=== PATIENT | female | born 1960 | race Caucasian/White ===

== ENCOUNTER 2017-10-03 14:20 | Outpatient (CLI) | payer BC ==
--- NOTE | 2017-10-03 16:53 | MRI ---
LUMBAR SPINE MRI WITH IV CONTRAST 10/03/17 HISTORY: 57-year-old female with lumbar radiculopathy and chronic low back pain, right leg pain for three to f our months with worsening. Multiplanar and multisequence MRI examination of the lumbar spine is performed. Generalized disc desiccation changes and ligament and facet hypertrophic changes. The conus medullari s region is unremarkable terminating at L1. The L1-L2 disc is unremarkable. At L2-L3, there is some desiccation change without central canal or foraminal stenosis. At L3-L4, there is some disc bulging, somewhat more prominent in the left lateral aspect with slight left foraminal narrowing but no central canal or lateral recess stenosis. At L4-L5, mild disc bulging, somewhat more prominent on the left lateral aspect with mild left forami nal stenosis but no significant central canal stenosis. At L5-S1, No central canal or foraminal stenosis. IMPRESSION: Multilevel mild disc bulging changes with some multilevel mild left foraminal stenosis without signif icant central canal or lateral recess stenosis. POS: TANYA
== END 2017-10-03 14:21 | disposition home or self-care (01) ==
LOC: SCSMRI 14:20
PROVIDERS: ATTEND Surgery
DX: M54.16 Radiculopathy, lumbar region (principal)
CPT/HCPCS: 72148

== ENCOUNTER 2018-01-10 21:27 | Observation (INO) | payer BC ==
[2018-01-10] MEDS ORDERED: Ketorolac Tromethamine 30 MG/ML VIAL ONE (22:08)
[2018-01-10] MEDS ORDERED: diphenhydrAMINE 50 MG/ML VIAL ONE (22:08)
[2018-01-10] MEDS ORDERED: Metoclopramide HCl 10 MG/2 ML VIAL ONE (22:08)
[2018-01-10] MEDS ORDERED: Morphine 4 MG/ML VIAL SLOW IVP PRN (22:56)
[2018-01-10] MEDS ORDERED: Metoclopramide HCl 10 MG/2 ML VIAL IVP PRN (22:57)
--- NOTE | 2018-01-10 23:40 | HP ---
DATE OF ADMISSION: 01/10/2018 CHIEF COMPLAINT: Slurred speech. HISTORY OF PRESENT ILLNESS: This is a 57-year-old white female with no known past medical history, b ut has a recent 3-week history of right hip replacement in [place]. Patient was on anticoagulatio n for the past few weeks and she completed her course yesterday at around 1900. She complained of so me dizziness and some slurred speech, so she called her who said the patient was completely c onfused and had a slurred speech and he was unable to comprehend so he immediately came [place] and took her to [facility]. At that point, they did a CT of the head as the patient was able to see some spots in her eyes. They decided to bring the patient to [facility] for further evaluati on. When patient presented here, she started having some severe headaches, [facility] had a similar episode four weeks ago, but this time the slurred speech was very remark able and as she had previous history of TIAs, wanted this to be ruled out. Patient presented to the [facility] more than 3 hours after the onset of symptoms, so as a CT head was negative and her sym ptoms have returned back to normal. There was no TPA was offered. Patient denies having any chest pain, no nausea, no vomiting, no diarrhea, no constipation, or headac he. She rates as 6/10 intensity and she also complains of right hip pain, which is 06/10 intensity a nd she is on [place] for that. PAST MEDICAL HISTORY: None. PAST SURGICAL HISTORY: History of two C-sections in the past. SOCIAL HISTORY: Patient is not a nonsmoker. No history of alcohol, no history of illicit drug use. FAMILY HISTORY: No significant family history of coronary artery disease or no premature deaths in t he family. HOME MEDICATIONS: Patient is on [place] for pain. ALLERGIES: No known drug allergies. REVIEW OF SYSTEMS: All 12 systems are reviewed with the patient thoroughly and found to be negative at this time. Systems reviewed, HEENT, CVS, DRILLING ASSISTANT, respiratory, GI. Constitutional: Weight loss or g ain, sense of well-being, ability to conduct usual activities, exercise tolerance. Skin/Breast: Steven h, itching, changes in hair growth or loss, nail changes, breast lumps, tenderness, swelling, nipple discharge. Eyes: Vision, double vision, tearing, blind spots, pain. ENT/Mouth: Headaches (locatio n, time of onset, duration, precipitating factors), vertigo, lightheadedness, injury. Vision, double vision, tearing, blind spots, pain, nose bleeding, colds, obstruction, discharge, dental difficulties , gingival bleeding, dentures, neck stiffness, pain, tenderness, masses in thyroid or other areas. C ardiovascular: Precordial pain, substernal distress, palpitations, syncope, dyspnea on exertion, ort hopnea, nocturnal paroxysmal dyspnea, edema, cyanosis, hypertension, heart murmurs, varicosities, phl ebitis, claudication. Respiratory: Pain, shortness of breath, wheezing, stridor, cough, hemoptysis, fever or night sweats. Gastrointestinal: Poor appetite, dysphagia, indigestion, abdominal pain, he artburn, eructation, nausea, vomiting, hematemesis, jaundice, constipation, or diarrhea, abnormal sto ols (lalito-colored, tarry, bloody, greasy, foul smelling), flatulence, hemorrhoids, recent changes in bowel habits. Genitourinary: Urgency, frequency, dysuria, nocturia, hematuria, polyuria, oliguria, unusual (or change in) color of urine, stones, hesitancy, change in size of stream, dribbling, acute retention or incontinence, libido, potency. Musculoskeletal: Pain, swelling, redness or heat of mus cles or joints, limitation, of motion, muscular weakness, atrophy, cramps. Neurologic/Psychiatric: Convulsions, paralyzes, tremor, incoordination, paresthesias, difficulties with memory of speech, sen casper or motor disturbances, or muscular coordination (ataxia, tremor), emotional problems, anxiety, d epression, previous psychiatric care, unusual perceptions, hallucinations. Allergy/Immunologic: Ski n rash, anemia, bleeding tendency, polydipsia, polyuria, intolerance to heat or cold. PHYSICAL EXAMINATION: VITAL SIGNS: Blood pressures were 138/88, respiratory is 18, saturation is 98%. GENERAL: The patient is moderately built, moderately nourished. She does not appear to be in acute distress. CARDIOVASCULAR: S1, S2 normal. No murmurs, rubs, or gallops. LUNGS: Bilateral air entry was equal. No wheezing, no crackles. ABDOMEN: Soft, nontender. No guarding, no rebound tenderness. Bowel sounds normal. MUSCULOSKELETAL: No calf tenderness. No pedal edema. No joint tenderness, no joint swelling. SKIN: No cyanosis, no erythema, no rash, no pallor. DRILLING ASSISTANT: Cranial nerve examination II-XII intact. No focal deficits were noted. LABORATORY DATA: WBC 7.1, hemoglobin is 13.3, hematocrit is 41.1, platelets is 481. Sodium is 138, potassium 4.2, chloride is 99, bicarbonate is 22, BUN is 12, creatinine is 0.79. ASSESSMENT: 1. Transient ischemic attack. 2. Atypical migraine with aura. 3. Recent right total hip replacement. 4. Moderate dehydration. PLAN: 1. Plan is to closely monitor this patient with neuro checks. We will start the patient on aspirin as a CT head was negative for any intracranial hemorrhage. We planned to do the MRI of the brain in the morning and we will do bilateral carotid ultrasound and 2D echo. If patient had evidence of stro ke, plan to consult Neurology in the morning. Patient will be started on statin, we will check lipid profile in the morning. 2. Patient has migraine with aura. We will continue with [place], which helped with the pain and we w ill treat with Reglan for any worsening nausea. We will avoid any NSAIDs at this time until stroke h as been ruled out. 3. Patient has severe dehydration, we will start the patient on normal saline at 100 mL hour. We wi ll closely monitor for any volume overload. Patient has right hip arthroplasty. Orthopedics is not from here. She had the surgery in [place] per her insurance rules. She follows up with Dr. Amee cook for her right total hip replacement. We will do PT and OT evaluation and speech evaluation before discharge. 4. Deep venous thrombosis prophylaxis. Lovenox 40 mg subcutaneous daily. I spent 75 minutes of this patient.
[2018-01-10 23:48] VITALS: BMI 30.3
[2018-01-11] MEDS ORDERED: Ondansetron HCl/PF 4 MG/2 ML Vial IVP PRN (00:05)
[2018-01-11] MEDS ORDERED: hydrALAZINE 20 MG/ML VIAL SLOW IVP PRN (00:05)
[2018-01-11] MEDS ORDERED: Acetaminophen 325 MG TAB PO PRN (00:05)
[2018-01-11] MEDS: Sodium Chloride 0.9% 1,000 ML IV SCH ×2 (00:42→14:53)
[2018-01-11] MEDS: HYDROcodone/Acetaminophen 5/325 mg Tablet PO PRN ×2 (00:42→10:00)
[2018-01-11 05:06] LABS: #Basophils 0.1 thou/uL (0.0-0.2); #Eosinphils 0.3 thou/uL (0.0-0.7); #Lymphocytes 1.5 thou/uL (1.20-3.40); #Monocytes 0.6 thou/uL (0.11-0.59); #Neutrophils 4.4 thou/uL (1.40-6.50); %Basophils 0.9 % (0.0-1.0); %Eosinophils 4.1 % (0.0-10.0); %Lymphocytes 21.7 % (21.0-51.0); %Monocytes 9.1 % (0.0-10.0); %Neutrophils 64.3 % (42.0-75.0); Hemoglobin 11.2 g/dL (12.0-16.0); Mean Corpuscular HGB CONC 33.9 g/dL (32.0-36.0); Mean Corpuscular Hemoglobin 31.7 pg (27.0-31.0); Mean Corpuscular Volume 93.4 fl (81.0-99.0); Mean Platelet Volume 6.7 fL (7.4-10.4); Platelet Count 442 thou/uL (130-400); RBC Distribution Width 11.8 % (11.5-14.5); Red Blood Cell (RBC) Count 3.55 mill/uL (4.20-5.40); White Blood Cell (WBC) Count 6.9 thou/uL (4.8-10.8)
[2018-01-11 05:33] LABS: Anion Gap 14 mmol/L (10-20); BUN (Urea Nitrogen) 9 mg/dL (9.8-20.1); Calc. Creatinine Clearance 102 mL/min (70-130); Calcium 8.8 mg/dL (7.8-10.44); Carbon Dioxide 22 mmol/L (22-29); Cardiac Risk 4.3 (Less than 4.5); Chloride 106 mmol/L (98-107); Cholesterol 191 mg/dl (< 200 Desired); Estimated GFR-MDRD Greater than 90; Glucose 88 mg/dL (70-105); HDL Cholesterol 44 mg/dL (>60 Neg Risk); LDL Cholesterol, Calculated 130 mg/dL; Potassium 3.6 mmol/L (3.5-5.1); Sodium 138 mmol/L (136-145); Triglycerides 85 mg/dL (Less than 150)
[2018-01-11] MEDS ORDERED: FLU VACC QS2017-18 36 mo. & older 0.5 ML SYRINGE IM ONE (09:00)
[2018-01-11] MEDS: Aspirin 81 mg Enteric Coated Tablet PO SCH (09:54)
[2018-01-11] MEDS: Famotidine 20 MG TAB PO SCH ×2 (09:54→21:06)
[2018-01-11] MEDS: Enoxaparin Sodium 40 MG/0.4 ML SYRINGE SC SCH (09:55)
--- NOTE | 2018-01-11 13:26 | MRI ---
NONCONTRAST EHNHANCED MRI IMAGES OF BRAIN: HISTORY: A 67-year-old female with a history of slurred speech. History of hip surgery 3 weeks ago. FINDINGS: Multiplanar, multisequence noncontrast enhanced MRI images of the brain obtained. MRI images of the brain demonstrate no definite evidence of intracranial masses, hemorrhages, strokes , or contusions. The ventricles are of normal size. Deep white matter ischemic changes are seen. N o evidence of areas of diffusion restriction seen. IMPRESSION: Unremarkable noncontrast-enhanced MRI images brain. POS: TANYA
--- NOTE | 2018-01-11 15:27 | CON ---
DATE OF CONSULTATION: 01/11/2018 CHIEF COMPLAINT: Dizziness. HISTORY OF PRESENT ILLNESS: The patient reports she was in her usual state of health. She had right hip replacement surgery about 3 weeks ago. She was on Lovenox injections for 10 days and then was t old to take a small dose of aspirin daily. She completed her Lovenox course yesterday at around 7:00 and she had difficulty with her speech. So, she texted her who stated to her that it made n o sense and she had difficulty with her speech and all was confused a bit, difficulty with expressing her words and he had come home from his office and she also had some dizziness. The entire episode lasted approximately an hour. She went to the local hospital where she had a CT of the head and she was sent here for further level of care. The patient has had some headaches on and off. Overall, deb dutta has not had a prior episode of TIA. She is usually healthy. PAST MEDICAL HISTORY: Arthritis. PAST SURGICAL HISTORY: History of C-sections and right hip replacement 3 weeks ago. SOCIAL HISTORY: She does not smoke. 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 She lives with her . HOME MEDICATION: She was on Lovenox until recently and also takes [place] for pain. ALLERGIES: No known drug allergies. REVIEW OF SYSTEMS: PULMONARY: Normal. CARDIAC: Normal. GASTROINTESTINAL: Normal. GENITOURINARY : Normal. RHEUMATOLOGIC: Positive for hip replacement and hip problems. DERMATOLOGIC: Normal. E NDOCRINE: Normal. NEUROLOGIC: Positive for word finding difficulties and dizziness. No weakness. Negative for any sensory symptoms. IMAGING DATA AND LABORATORY DATA: MRI report is pending. White count 6.9, hemoglobin 11.2, hematocr it 33.1, platelets 442, sodium 138, potassium 3.6, chloride 106, bicarbonate 22, BUN 9, creatinine 0. 64. PHYSICAL EXAMINATION: VITAL SIGNS: Blood pressure 134/70, temperature 98.5, pulse 113, respiratory rate 18. GENERAL APPEARANCE: Well-built and well-nourished lady who is comfortable in bed. CHEST: Clear vesicular breathing. CARDIOVASCULAR: S1, S2 heard, no murmurs. Carotids are clear. ABDOMEN: Soft, nontender, no organomegaly noted. MOTOR: Bulk normal, tone normal, strength 5/5 in upper and lower extremities in iliopsoas, hamstring s, quadriceps, ankle dorsiflexion, plantar flexion, deltoid, biceps, triceps, wrist extension/flexion , finger extension and flexion bilaterally. SENSORY: Normal to touch, pinprick, proprioception, vibration and temperature. Cerebellar: Normal [id number]-il-[id number] and qlbh-ni-[id number] and deep tendon reflexes are 2+ throughout. IMPRESSION: Patient is a 57-year-old lady with transient episode of difficulty with word finding jay ng with dizziness. No weakness or numbness was reported. She was brought to the ER and has been wor ked up so far with CT head at an outside facility and her current MRI report is pending. Her neurolo gical examination is normal. Diagnosis is most consistent with transient ischemic attack in the sett ing of recent hip surgery. RECOMMENDATIONS: Please complete her workup including carotid Doppler and MRI as well as echocardiog jh and consider venous Dopplers for her legs, as well to make sure there is no other hypercoagulable issue and I will request Dr. Chappell, neurologist, to follow up on the patient tomorrow.
[2018-01-11] MEDS ORDERED: Atorvastatin Calcium 40 MG TAB PO SCH (21:00)
--- NOTE | 2018-01-11 21:46 | PDOC.PN ---
- Subjective Encounter Start Date: 01/11/18 Encounter Start Time: 15:00 Patient seen and examined. No new complaints. No overnight events. No new focal deficits. - Objective Resuscitation Status: Resuscitation Status FULL:Full Resuscitation MAR Reviewed: Yes Vital Signs & Weight: Vital Signs (12 hours) Temp Pulse Pulse Pulse Resp BP BP 01/11/18 15:23 98.6 F 102 H 18 01/11/18 15:09 105 H 114 H 115/75 120/68 01/11/18 11:20 98.5 F 113 H 18 01/11/18 09:50 98.5 F 103 H 18 BP Pulse Ox 01/11/18 15:23 115/75 97 01/11/18 15:09 01/11/18 11:20 134/70 96 01/11/18 09:50 126/72 95 Weight Weight 150 lb 1.6 oz I&O: 01/10/18 01/11/18 01/12/18 06:59 06:59 06:59 Intake Total 1130 970 Balance 1130 970 Result Diagrams: 01/11/18 04:28 01/11/18 04:28 EKG Reviewed by me: Yes (Tele SR) Phys Exam - Physical Examination Constitutional: NAD Respiratory: no wheezing, no rhonchi Cardiovascular: RRR, no rub Gastrointestinal: soft, non-tender, positive bowel sounds Musculoskeletal: no edema Dx/Plan - Plan DVT proph w/SCDs IMPRESSION: 1. TIA 2. Recent hip surgery 3. Obesity BMI 30.3 4. Abn Alk Phosphatase 5. Chronic Anemia / HLD PLAN: * Neuro input appreciated * Await Echo * Carotid and BLE Doppler per Neuro recomm. * Cont ASA * DVT prophylaxis * Statins - will reduce dose * AM labs Review of Systems - Review of Systems Respiratory: negative: Cough, Dry, Shortness of Breath, Hemoptysis, SOB with Excertion, Pleuritic Pain, Sputum, Wheezing Cardiovascular: negative: chest pain, palpitations, orthopnea, paroxysmal nocturnal dyspnea, edema, light headedness Gastrointestinal: negative: Nausea, Vomiting, Abdominal Pain, Diarrhea, Constipation, Melena, Hematochezia - Medications/Allergies Allergies/Adverse Reactions: Allergies Allergy/AdvReac Type Severity Reaction Status Date / Time No Known Drug Allergies Allergy Verified 01/11/18 00:37 Medications: Current Medications Acetaminophen (Tylenol) 650 mg PO Q4H PRN PRN Reason: Headache/Fever or Pain Hydrocodone Bitart/Acetaminophen ([place] 5/325) 1 tab PO Q4H PRN PRN Reason: Moderate Pain (4-6) Last Admin: 01/11/18 10:00 Dose: 1 tab Aspirin (Ecotrin) 81 mg PO DAILY [facility] Last Admin: 01/11/18 09:54 Dose: 81 mg Atorvastatin Calcium (Lipitor) 40 mg PO HS [facility] Last Admin: 01/11/18 21:06 Dose: 40 mg Enoxaparin Sodium (Lovenox) 40 mg SC 0900 [facility] Last Admin: 01/11/18 09:55 Dose: 40 mg Famotidine (Pepcid) 20 mg PO BID [facility] Last Admin: 01/11/18 21:06 Dose: 20 mg Hydralazine HCl (Apresoline) 10 mg SLOW IVP Q4H PRN PRN Reason: BP > 220/110 Metoclopramide HCl (Reglan) 10 mg IVP Q8H PRN PRN Reason: nausea Morphine Sulfate (Morphine) 2 mg SLOW IVP Q4H PRN PRN Reason: Breakthrough Pain Ondansetron HCl (Zofran) 4 mg IVP Q6H PRN PRN Reason: Nausea/Vomiting
[2018-01-12 06:01] LABS: ALT (SGPT) 21 U/L (8-55); AST (SGOT) 17 U/L (5-34); Albumin 3.2 g/dL (3.5-5.0); Alkaline Phosphatase 139 U/L (40-150); Anion Gap 13 mmol/L (10-20); BUN (Urea Nitrogen) 6 mg/dL (9.8-20.1); Bilirubin, Total 0.3 mg/dL (0.2-1.2); Calc. Creatinine Clearance 100 mL/min (70-130); Calcium 9.3 mg/dL (7.8-10.44); Carbon Dioxide 23 mmol/L (22-29); Chloride 109 mmol/L (98-107); Estimated GFR-MDRD Greater than 90; Globulin 2.5 g/dL (2.4-3.5); Glucose 97 mg/dL (70-105); Magnesium 1.6 mg/dL (1.6-2.6); Potassium 3.6 mmol/L (3.5-5.1); Protein, Total 5.7 g/dL (6.0-8.3); Sodium 141 mmol/L (136-145)
[2018-01-12 08:09] VITALS: TEMP 97.6
[2018-01-12] MEDS: Famotidine 20 MG TAB PO SCH (08:52)
[2018-01-12] MEDS: Aspirin 81 mg Enteric Coated Tablet PO SCH (08:52)
[2018-01-12] MEDS: Enoxaparin Sodium 40 MG/0.4 ML SYRINGE SC SCH (08:52)
--- NOTE | 2018-01-12 09:44 | ULT ---
BILATERAL LOWER EXTREMITY VENOUS ULTRASOUND: Date: 01/12/18 COMPARISON: None. HISTORY: Right lower extremity edema and pain for weeks. TECHNIQUE: Multiplanar Edmond scale and color Doppler images were obtained in a bilateral lower extremity venous u ltrasound. Spectral analysis of the Doppler waveforms were performed. FINDINGS: Bilateral common femoral veins, profunda femoral veins, superficial femoral veins, and popliteal vein s are normal in appearance without visible thrombus. These vessels demonstrate normal compression, fl ow, and augmentation. The posterior tibial veins and greater saphenous veins are also patent. IMPRESSION: No evidence of deep venous thrombosis. POS: BRIAN
--- NOTE | 2018-01-12 09:46 | ULT ---
CAROTID ULTRASOUND: DATE: 01/12/18 COMPARISON: None. HISTORY: TIA. TECHNIQUE: Multiplanar Edmond scale and color Doppler images were obtained in a carotid ultrasound. Spectral maddi sis of the Doppler waveforms were performed. FINDINGS: No significant plaque is seen in either internal or common carotid artery. The Doppler waveforms are normal bilaterally. Peak systolic velocity in the right ICA is 80 cm/second. Peak systolic velocity in the right CCA is 9 4 cm/second. The right ICA/CCA ratio is 0.9. Peak systolic velocity in the left ICA is 82 cm/second. Peak systolic velocity in the left CCA is 85 cm/second. The left ICA/CCA ratio is 1.0. Both vertebral arteries demonstrate antegrade flow without focal stenosis. IMPRESSION: No evidence of hemodynamically significant stenosis. POS: [facility]ANYA
[2018-01-12 11:44] VITALS: BP 113/57
--- NOTE | 2018-01-12 15:06 | DIS ---
DATE OF ADMISSION: 01/10/2018 DATE OF DISCHARGE: 01/12/2018 CONDITION AT THE TIME OF DISCHARGE: Stable and improved. DISCHARGE DIAGNOSES: 1. Transient ischemic attack. 2. Chronic anemia. 3. Dyslipidemia. 4. Mild obesity with a BMI of 30.3, recent hip surgery status. PRIMARY CARE PHYSICIAN: Dr. Yaniv Brown. DISCHARGE DISPOSITION: Home. DISCHARGE FOLLOWUP: 1. PCP. 2. Neurology, Dr. Amita Chappell. DISCHARGE MEDICATIONS: Aspirin 81 mg daily, atorvastatin 10 mg daily. PROCEDURES DURING THE HOSPITAL: Include, 1. Transthoracic echocardiogram which shows trivial pericardial effusion, otherwise overall normal l eft ventricular function with EF of 60%-65%. 2. MRI of the brain which is negative for any acute infarction or hemorrhage. 3. Carotid Doppler ultrasound bilaterally, which is negative for any hemodynamically significant conner nosis. 4. Lower extremity Doppler ultrasound bilateral. It is negative for any DVT. HISTORY OF PRESENTING ILLNESS: Ms. Duff is a very pleasant 57-year-old female who was brought in by her family for complaints of sudden onset of expressive aphasia and concerns for stroke. The patient is about 3 weeks status post orthopedic surgery of right hip replacement in [place]. She was brought in to [facility] where a CT scan of the head was done which was unremarkable. She w as admitted for further evaluation. Please see admission history and physical for further detail. B y the time, the patient was admitted. Her symptoms have improved. HOSPITAL COURSE: The patient underwent stroke workup and stroke team evaluation. Neurology, Dr. Raman, saw the patient and advised starting her on aspirin and low dose statin given the possibility th at this might be a TIA. Her studies were done and were negative so far. Given the recent surgery hi story, she was started on a daily aspirin with statins and [facility] Prior to discharge, she was seen and examined and is symptom free and eager to go home. PHYSICAL EXAMINATION: VITAL SIGNS: This morning include temperature 97.6, pulse of 94, respirations 20, saturating 95% on room air, blood pressure 113/57. GENERAL: No acute distress, awake, alert, oriented x3. CHEST: Clear to auscultation bilaterally. CARDIAC: Rate and rhythm is regular. NEUROLOGICAL: Nonfocal. Serum chemistry showed triglycerides 85, total cholesterol 191, LDL 130, HDL 44. Her alkaline phosph atase was 198 upon admission, which has improved to normal at 139 prior to discharge. Hemoglobin 11. 2, otherwise unremarkable labs. She was instructed to follow up with her primary care physician in 7-10 days and Neurology in 2-3 wee ks.
[2018-01-12] MEDS ORDERED: Atorvastatin Calcium 10 MG TAB PO SCH (21:00)
== END 2018-01-12 12:23 | disposition home or self-care (01) ==
LOC: ERS 21:27 → 2SE 22:18
PROVIDERS: ADMIT Family Medicine; ATTEND Family Medicine
DX: G45.9 Transient cerebral ischemic attack, unspecified (principal); E78.5 Hyperlipidemia, unspecified; G43.909 Migraine, unspecified, not intractable, without status migrainosus; E86.0 Dehydration; D53.9 Nutritional anemia, unspecified; M19.90 Unspecified osteoarthritis, unspecified site; E66.9 Obesity, unspecified; Z68.30 Body mass index [BMI] 30.0-30.9, adult; Z86.73 Personal history of transient ischemic attack (TIA), and cerebral infarction without residual deficits; Z96.641 Presence of right artificial hip joint; Z98.891 History of uterine scar from previous surgery
CPT/HCPCS: 36415; 70551; 80048; 80053; 80061; 83735; 85025; 90471; 90682; 93306; 93880; 93970; 96361; 96365; 96372; 96375; G0008; G0378; G8978-GP-CI; G8979-GP-CI; G8980-GP-CI; G8987-GO-CJ; G8988-GO-CJ; G8989-GO-CJ; G9162-GN-CH; G9163-GN-CH; G9164-GN-CH; J1200; J1650; J1885; J2765; Q2036

== ENCOUNTER 2018-05-22 16:21 | Emergency (ER) | payer BC ==
[~2018-05-22 16:21] MED LIST: Iopamidol 370 76% 100 ML VIAL ONE
[2018-05-22 16:41] LABS: Bilirubin Negative (Negative); Blood, Urine Negative (Negative); Clarity Clear (Clear); Glucose, Urine (Dipstick) Negative (Negative); Leukocyte Negative (Negative); Nitrite Negative (Negative); Protein, Urine (Dipstick) Negative (Neg-Trace); Urobilinogen 0.2 mg/dL (0.2-1.0); pH, Urine 7.5 (5.0-9.0)
[2018-05-22] MEDS ORDERED: Morphine 4 MG/ML Carpuject ONE (16:57)
[2018-05-22] MEDS ORDERED: Ondansetron HCl/PF 4 MG/2 ML Vial ONE (16:57)
[2018-05-22 17:18] LABS: ALT (SGPT) 26 U/L (8-55); AST (SGOT) 21 U/L (5-34); Albumin 4.3 g/dL (3.5-5.0); Alkaline Phosphatase 101 U/L (40-150); Anion Gap 18 mmol/L (10-20); BUN (Urea Nitrogen) 10 mg/dL (9.8-20.1); Bilirubin, Direct 0.3 mg/dL (0.1-0.3); Bilirubin, Total 0.7 mg/dL (0.2-1.2); Calc. Creatinine Clearance 0 mL/min (70-130); Calcium 10.4 mg/dL (7.8-10.44); Carbon Dioxide 25 mmol/L (22-29); Chloride 102 mmol/L (98-107); Estimated GFR-MDRD 84; Glucose 106 mg/dL (70-105); Lipase 23 U/L (8-78); Potassium 3.8 mmol/L (3.5-5.1); Protein, Total 7.6 g/dL (6.0-8.3); Sodium 141 mmol/L (136-145)
[2018-05-22 17:19] LABS: #Basophils 0.1 thou/uL (0.0-0.2); #Eosinphils 0.2 thou/uL (0.0-0.7); #Lymphocytes 1.4 thou/uL (1.20-3.40); #Monocytes 0.8 thou/uL (0.11-0.59); #Neutrophils 6.8 thou/uL (1.40-6.50); %Basophils 1.1 % (0.0-1.0); %Eosinophils 2.5 % (0.0-10.0); %Lymphocytes 14.9 % (21.0-51.0); %Monocytes 8.3 % (0.0-10.0); %Neutrophils 73.3 % (42.0-75.0); Hemoglobin 14.6 g/dL (12.0-16.0); Mean Corpuscular HGB CONC 35.6 g/dL (32.0-36.0); Mean Corpuscular Hemoglobin 30.3 pg (27.0-31.0); Mean Corpuscular Volume 85.1 fL (78.0-98.0); Mean Platelet Volume 7.3 fL (7.4-10.4); Platelet Count 282 thou/uL (130-400); RBC Distribution Width 11.5 % (11.5-14.5); Red Blood Cell (RBC) Count 4.82 mill/uL (4.20-5.40); White Blood Cell (WBC) Count 9.3 thou/uL (4.8-10.8)
--- NOTE | 2018-05-22 18:57 | CT ---
CT OF ABDOMEN AND PELVIS PERFORMED WITH INTRAVENOUS CONTRAST ENHANCEMENT: 05/22/18 HISTORY: Abdominal pain and vomiting. Symptoms starting 05/06/18 CT. The lung bases are clear of any focal infiltrative process. Some minimal ground glass opacity in the lung betancourt similar to the prior exam. The liver, spleen, pancreas, and gallbladder regions appear unremarkable. Right and left adrenal glands and right and left kidneys are normal in size. There is no significant periaortic or mesenteric lymphadenopathy. No bowel wall abnormalities. CT OF PELVIS PERFORMED WITH CONTRAST ENHANCEMENT: The appendix appears unremarkable. Density seen within the uterus appears to represent a fibroid. No evidence of any significant pelvic lymphadenopathy. Review of osseous structures show right hip prosthesis. There are arthritic changes of the spine. IMPRESSION: 1. Minimal sigmoid diverticulosis. 2. No acute abnormalities of the abdomen or pelvis. 3. Small uterine fibroid. POS: [facility]
== END 2018-05-22 18:23 | disposition home or self-care (01) ==
LOC: SCSER 16:21
DX: R10.13 Epigastric pain (principal); E78.5 Hyperlipidemia, unspecified; I10 Essential (primary) hypertension; F32.9 Major depressive disorder, single episode, unspecified; F41.9 Anxiety disorder, unspecified; Z79.899 Other long term (current) drug therapy; Z79.82 Long term (current) use of aspirin
CPT/HCPCS: 74177; 80048; 80076; 81003; 83690; 85025; 96361; 96374; 96375; J2270; J2405

== ENCOUNTER 2018-10-23 12:38 | Outpatient (CLI) | payer BC ==
--- NOTE | 2018-10-23 15:25 | CT ---
CT THORAX WITH IV CONTRAST: Date: 10-23-18 History: Lymphadenopathy follow up evaluation. Comparison: 05-06-18 FINDINGS: Previously noted mildly enlarged mediastinal and hilar lymph nodes have all decreased in size on toda y's examination. No enlarged lymph nodes are seen within the mediastinum or hilar regions. Largest ly mph node measured on today's examination is in the right hilar region measuring 8 mm and previously m easured 18 mm. A prevascular space lymph node on the prior study measured 10 mm in short axis imaging and now measures 6 mm. Right paratracheal lymph node on today's exam measures 7 mm and previously me asured 11 mm in short axis dimension. Thoracic aorta is normal in caliber. The lungs remain clear. Visualized upper abdomen has a normal CT appearance. IMPRESSION: 1. No acute findings are seen in the chest. 2. No enlarged mediastinal or hilar lymph nodes are seen on today's examination. Mildly enlarged lymp h nodes noted on the prior exam have all decreased in size. POS: [facility]
== END 2018-10-23 12:39 | disposition home or self-care (01) ==
LOC: SCSCT 12:38
PROVIDERS: ATTEND Nurse Practitioner Adult Health
DX: R59.0 Localized enlarged lymph nodes (principal)
CPT/HCPCS: 71260

== ENCOUNTER 2021-02-15 14:08 | Outpatient (CLI) | payer MEDICARE | END 2021-02-15 14:09 | disposition home or self-care (01) | LOC: BICRAD 14:08 | PROVIDERS: ATTEND Family Medicine | DX: M25.512 Pain in left shoulder (principal) ==